=== PATIENT | male | born 1975 | race Caucasian/White ===

== ENCOUNTER → 2016-08-24 | Outpatient (CLI) | payer SELFPAY ==
--- NOTE | 2016-08-24 13:42 | DI ---
LEFT SHOULDER, 08/24/2016 1:21 PM: Clinical History: Dislocation of the left shoulder joint. Previous Exam: None at this facility. 4 views are submitted. The glenohumeral joint is normal. There is a grade 2 AC joint separation. The visualized portions of the left lung excluding the apex are normal. Reading: Grade 2 AC joint separation. The glenohumeral joint is normal.
== END ==
LOC: ORTHO 13:32
PROVIDERS: ATTEND Orthopaedic Surgery
DX: M24.412 Recurrent dislocation, left shoulder (principal)
CPT/HCPCS: 73030